=== PATIENT | male | born 1985 | race Hispanic/Latino ===

== ENCOUNTER 2025-03-05 05:00 | Emergency (ER) | payer SELFPAY ==
[~2025-03-05] VITALS: Ht 170.2 cm; Wt 82.2 kg
[2025-03-05 05:59] LABS: BASOPHILS % 0.6 % (0.0-1.0); EOSINOPHILS % 6.7 % (0.0-6.0); LYMPHOCYTES % 13.9 % (18.0-39.1); MONOCYTES % 5.8 % (4.4-11.3); NEUTROPHILS % 72.7 % (38.7-80.0); RED CELL DISTRIBUTION WIDTH 11.9 % (11.7-14.4)
[2025-03-05 06:26] LABS: EST GLOMERULAR FILTRATION RATE 117.0 ML/MIN (>=60)
[2025-03-05] MEDS: SODIUM CHLORIDE 0.9% 1000ML 1,000 ML IV STA (06:30)
[2025-03-05 06:31] LABS: CORONAVIRUS COVID-19 AG NEGATIVE (NEGATIVE)
[2025-03-05 06:48] LABS: LEUKOCYTE ESTERASE ,URINE SMALL (NEGATIVE); PROTEIN,URINE DIPSTICK NEGATIVE (NEGATIVE)
[2025-03-05 06:49] LABS: AMPHETAMINES SCREEN,URINE NEGATIVE (NEGATIVE); CANNABINOIDS SCREEN,URINE NEGATIVE (NEGATIVE); COCAINE SCREEN,URINE NEGATIVE (NEGATIVE); METHADONE SCREEN, URINE NEGATIVE (NEGATIVE); OPIATES SCREEN,URINE NEGATIVE (NEGATIVE); URINE UROBILINOGEN 0.2 mg/dL (0.2 - 1)
[2025-03-05 06:51] LABS: EPITHELIAL CELLS,URINE FEW /LPF; WBC,URINE (MAN) >50 /HPF (0-5)
[2025-03-05] MEDS ORDERED: CEFDINIR300 MG PO (07:43)
[2025-03-05 09:12] VITALS: PULSE 86; RESP 16; TEMP 98.2; O2SAT 98
== END 2025-03-05 09:14 | disposition home or self-care (01) ==
LOC: ER 05:03
DX: R30.0 Dysuria (principal); N30.91 Cystitis, unspecified with hematuria; R10.30 Lower abdominal pain, unspecified; R53.81 Other malaise; Z11.52 Encounter for screening for COVID-19
CPT/HCPCS: 36415; 74177; 80053; 80307; 81001; 82550; 83690; 83880; 84484; 85025; 99284